=== PATIENT | male | born 1970 | race Caucasian/White ===

== ENCOUNTER 2020-01-14 04:18 | Emergency (ER) | payer BC, SELFPAY ==
[2020-01-14 04:28] VITALS: BP 176/94; PULSE 93; RESP 17; TEMP 36.7; O2SAT 96; BMI 31.6
--- NOTE | 2020-01-14 04:38 | XR_ITS ---
PROCEDURE: XR TIBIA FIBULA RT 2V CLINICAL INDICATION: New lump behind calf previous fracture involving tibia COMPARISON: No exams were available for comparison FINDINGS: There is mild deformity of the proximal tibia at the diametaphyseal zone likely due to previous fracture. In addition there is mild cortical thickening mid tibial shaft from an old healed fracture. The fibula is intact. The soft tissues are normal. IMPRESSION: Posttraumatic changes of the tibia, no definite acute soft tissue or bony pathology seen Dictated by: Dr. Jer Julian MD 01/14/2020 09:[address] Jer Julian MD in [place] 01/14/2020 09:27
--- NOTE | 2020-01-14 04:56 | HMH.EDGENADL ---
ED Disposition Clinical Impression: Injury, lower leg Qualifiers: Encounter type: initial encounter Laterality: right Qualified Code(s): S89.91XA - Unspecified injury of right lower leg, initial encounter Disposition: Home, Self-Care Condition on Discharge: Good Instructions: DI for Acute Pain -- Adult Additional Instructions: will arrange doppler today - and will need therapy and nsaif Referrals: Cruz Prieto MD [Primary Care Provider] - - Critical Care Critical Care Time: No Attestation: On 01/14/20, the high probability of a clinically significant, sudden or life threatening deterioration of the following system(s) required my full and direct attention, intervention and personal management. The time I documented below is in addition to time spent performing reported procedures but includes the following listed in this critical care notation. Medical Decision Making - Medical Records Medical records reviewed: Yes: I reviewed the patient's medical records. - Ulisses Inquiry Pt receiving controlled substance: No Vital Signs: 01/14/20 04:28 Temperature 98.1 F Temperature Source Oral Pulse Rate [Right Brachial] 93 H Respiratory Rate 17 Blood Pressure [Right Arm] 176/94 H Blood Pressure Mean [Right Arm] 121 Blood Pressure Source [Right Arm] Automatic Cuff Blood Pressure Position [Right Arm] Sitting 02 Sat by Pulse Oximetry 96 Oxygen Delivery Method Room Air - Lab Data Lab results reviewed: Yes: I reviewed the patient's lab results. Lab Results 01/14/20 04:38: WBC 11.5 H, RBC 4.78, Hgb 15.9, Hct 45.8, MCV 95.8 H, MCH 33.3 H, MCHC 34.7, RDW 13.0, Plt Count 227, MPV 7.6, Neut % (Auto) 75.1, Lymph % (Auto) 17.3, [place] % (Auto) 5.3, Eos % (Auto) 1.9, Baso % (Auto) 0.5, Neut # (Auto) 8.6 H, Lymph # (Auto) 2.0, [place] # (Auto) 0.6, Eos # (Auto) 0.2, Baso # (Auto) 0.1 01/14/20 04:38: Sodium 133 L, Potassium 4.1, Chloride 100, Carbon Dioxide 26, Anion Gap 11.1, BUN 12, Creatinine 0.80, Estimated Creat Clear 168, Estimated GFR 102, Est GFR ( Amer) 123, Glucose 119 H, Calcium 9.3, Total Bilirubin 0.4, AST 55, ALT 55, Alkaline Phosphatase 94, Total Protein 7.6, Albumin 4.5, Globulin 3.1, Albumin/Globulin Ratio 1.5 Result diagrams: 01/14/20 04:38 01/14/20 04:38 Orders (Tests/Meds): ORDERS Category Date Time Status XR tibia fibula RT 2V Stat Exams 01/14/20 04:38 Taken - Radiology Data #1 Image(s): Tib/Fib Image Reviewed: Yes I reviewed the patient's radiology image Preliminary Findings: No Fracture Seen General Adult HPI - General Chief complaint: PAIN Stated complaint: Knot on calf of right leg Time Seen by Provider: 01/14/20 05:10 Mode of Arrival: Family Vehicle Source of Information: Patient, Medical Record Limitations: No Limitations Description of Symptoms (Recalled from ER Triage Doc. by RN): felt a pop in the posterior lower leg on wednesday when he was taking out his trash. pt states he has tried heat, ibuprofen, tylenol and a TENS unit on it with some relief. however overnight last night incr pain and a knot formed under his calf muscle. - History of Present Illness HPI narrative: sudden pop rt calf as he was stepping up and has swelling and pain deyanira with flexion of foot - no sob or prev dvt - hx of prev fx rt leg Onset (ago): day(s) Location: lower extremity Severity: moderate Associated symptoms: denies other symptoms Treatments prior to arrival: none - Related Data Home Medications Medication Instructions Recorded Confirmed Aspirin [Aspirin 81mg EC Tab] 81 mg PO DAILY 01/14/20 01/14/20 Atorvastatin Calcium [Lipitor 20mg 20 mg PO HS 01/14/20 01/14/20 Tablet] Fenofibrate 160 mg PO DAILY 01/14/20 01/14/20 Losartan Potassium [Cozaar 50mg 50 mg PO DAILY 01/14/20 01/14/20 Tablets] Allergies Allergy/AdvReac Type Severity Reaction Status Date / Time No Known Allergies Allergy Verified 01/14/20 04:33 [facility] History - Hepatitis A Screen D
[2020-01-14 04:57] LABS: Basophils # 0.1 K/mm3 (0-0.2); Basophils % 0.5 % (0.1-2.0); Eosinophils # 0.2 K/mm3 (0.0-0.4); Eosinophils % 1.9 % (0.1-12.0); Hematocrit 45.8 % (42.0-52.0); Hemoglobin 15.9 g/dL (14.1-18.0); Lymphocytes % 17.3 % (10-50); Mean Corpuscular HGB Conc 34.7 g/dL (31.8-35.4); Mean Corpuscular Hemoglobin 33.3 pg (27.0-31.2); Mean Corpuscular Volume 95.8 fl (80-94); Mean Platelet Volume 7.6 fl (7.4-10.4); Monocytes # 0.6 K/mm3 (0.1-1.0); Monocytes % 5.3 % (1.7-9.3); Neutrophils # 8.6 K/mm3 (1.8-7.8); Neutrophils % 75.1 % (37.0-80.0); Platelet Count 227 K/mm3 (142-424); Red Blood Count 4.78 M/mm3 (4.60-6.20); White Blood Count 11.5 K/mm3 (4.8-10.8)
[2020-01-14 04:59] LABS: Alanine Aminotransferase 55 U/L (12-78); Albumin Level 4.5 g/dl (3.5-5.0); Albumin/Globulin Ratio 1.5 (1.1-1.8); Alkaline Phosphatase 94 U/L (38-126); Anion Gap 11.1 mEq/L (5-15); Aspartate Amino Transferase 55 U/L (17-59); Bilirubin,Total 0.4 mg/dl (0.2-1.3); Blood Urea Nitrogen 12 mg/dl (9-20); Calcium 9.3 mg/dl (8.4-10.2); Carbon Dioxide 26 mmol/L (22.0-30.0); Chloride 100 mmol/L (98-107); Creatinine Clearance Estimated 168 mL/min (50-200); Estimated Glomerular Filt Rate 102 ml/min (>60); GFR (African American) 123 ML/MIN (>60); Globulin 3.1 g/dL (1.3-3.2); Glucose 119 mg/dl (74-100); Potassium 4.1 mmoL/L (3.5-5.1); Sodium 133 mmol/L (136-145); Total Protein,Serum 7.6 g/dl (6.3-8.2)
[2020-01-14 06:07] VITALS: BP 159/97; PULSE 89; RESP 16; TEMP 36.7; O2SAT 96
== END 2020-01-14 06:18 | disposition home or self-care (01) ==
PROVIDERS: Emergency Provider Emergency Medicine; PCP Family Medicine
DX: S89.91XA Unspecified injury of right lower leg, initial encounter (principal); Z79.899 Other long term (current) drug therapy; E78.5 Hyperlipidemia, unspecified; I10 Essential (primary) hypertension
CPT/HCPCS: 73590; 80053; 85025; 99282

== ENCOUNTER → 2020-01-14 12:47 | Outpatient (CLI) | payer BC, SELFPAY ==
--- NOTE | 2020-01-14 | CA_ITS ---
APPROVED REPORT Right Lower Extremity Venous Study for DVT. Acid Splicer: CT Indications Lower Extremity Pain: Pt felt a pop and had pain while moving furniture Wednesday night. Vein Imaging CFV (R): compressive, spontaneous, phasic, augmentation SFJ (R): compressive, spontaneous, phasic, augmentation FEM (R): compressive, spontaneous, phasic, augmentation POP (R): compressive, spontaneous, phasic, augmentation DFV (R): compressive, spontaneous, phasic, augmentation PTV (R): compressive, spontaneous, phasic, augmentation GSV (R): compressive, spontaneous, phasic, augmentation Peroneals (R):compressive, spontaneous, phasic, augmentation GAS (R): compressive, spontaneous, phasic, augmentation Findings RLE negative for DVT/SVT. Vessels compressible, no reflux noted. Color flow duplex demonstrates no evidence of DVT of the following right lower extremity Veins. Pt had interstitial edema in the calf, the same area he felt pop. Conclusion RLE negative for DVT/SVT. Vessels compressible, no reflux noted. Color flow duplex demonstrates no evidence of DVT of the following right lower extremity Veins. Pt had interstitial edema in the calf, the same area he felt pop. Electronically signed by : Jona Renteria, 01/18/2020 09:21:03
== END ==
PROVIDERS: PCP Family Medicine; Visit Provider Emergency Medicine
DX: M79.89 Other specified soft tissue disorders (principal); M79.661 Pain in right lower leg
CPT/HCPCS: 93971

== ENCOUNTER → 2020-08-08 07:33 | Outpatient (CLI) | payer BC, SELFPAY ==
--- NOTE | 2020-08-08 | CA_ITS ---
APPROVED REPORT Exam: Pharmacologic Technologist: Virginia Peña, Ht: 6 ft 0 in Wt: 239 lbs BSA: 2.30 m2 HR: 68 bpm BP: 158/78 mmHg Rhythm: NSR Indications: Chest Pain, htn Stress Test Details Test: LEXISCAN HR Resting HR: 71 bpm Max Heart Rate (APMHR): 168 bpm Max HR Achieved: 101 bpm Target HR (85% APMHR): 142 bpm % of APMHR: 60 Recovery HR: 86 bpm BP Resting BP: 158/78 mmHg Max BP: 158/78 mmHg Recovery BP: 124.0/86.0 mmHg ECG Clinical Exercise duration: 04:01 min Highest Stage Achieved: Stress ECG Conclusion chest tightness, SOA, and malaise. Occasional PVC. No significant changes Unremarkable Lexiscan stress. Myoview images reported separately.. Electronically signed by : Joseph Fallon, 08/08/2020 14:53:47
--- NOTE | 2020-08-08 07:33 | NM_ITS ---
APPROVED REPORT Exam: Nuclear Stress Test Indication: chest pain Patient Location: Outpatient Stress Tech: Virginia Peña MD Tech:EVELINA Burciaga RT(R)(N) Ht: 6 ft 1 in Wt: 245 lbs HR: 68 bpm BP: 158/78 mmHg BSA: 2.35 m2 BMI: 32.3 Procedure: Patient received a 0.4 mg of intravenous Lexiscan, resting heart rate 68 bpm, resting blood pressure 158/78 mmHg, with Lexiscan maximum heart rate achived was 100 bpm which is Less than 85 % of the maximum predicted heart rate and blood pressure was 147/71 mmHg. With Lexiscan, patient denied any complaint of chest pain. Electrocardiogram Resting electrocardiogram showed sinus rhythm, with Lexiscan there is less than 1.[address] segment depression noted from the baseline EKG. The EKG portion of the Lexiscan is nondiagnostic. Cardiac Stress and Resting SPECT Images: Cardiac Stress and Resting SPECT images were obtained using technetium 99m Myoview 32.1 mCi stress and 10.28 mCi at rest. Gated SPECT for analysis of segmental wall motion and calculation of the ejection fraction also done. Prone images were also obtained. Cardiac stress and resting SPECT images show uniform myocardial activity without segmental perfusion abnormality, computer derived ejection fraction is 51% with no regional wall motion abnormality, right ventricle is mildly enlarged with normal contractility. Conclusion: 1. The EKG portion of the Lexiscan is nondiagnostic. 2. No scintigraphic evidence of reversible ischemia seen, computer derived ejection fraction is 51% with no regional wall motion abnormality, right ventricle is mildly enlarged with normal contractility. 3. Normal Lexiscan Myoview study. Electronically signed by : Joseph Fallon, 08/08/2020 14:57:48
--- NOTE | 2020-08-08 08:18 | CA_ITS ---
APPROVED REPORT EXAM: Comprehensive 2D, Doppler, and color-flow Echocardiogram Supervisor Varnish: Fernanda Dorman RVT Ht: 6 ft 1 in Wt: 239lbs BSA: 2.32 BP: 160/92 mmHg Indications: CP,SOA,ABN EKG,HTN,HLD,SMOKER,ALCOHOL DEPENDENCE 2D Dimensions LVOT 2.21 cm (M/F) 1.5-2.5 M-Mode Dimensions RVDd 3.14 cm (0.9-2.6) LA Diam 4.14 cm (1.9-4.0) LVDd 5.48 cm (3.5-5.7) Ao Diam 3.02 cm (2.0-3.7) LVDs 3.87 cm (3.5-5.7) IVSd 0.68 cm (0.6-1.1) PWd 0.93 cm (0.6-1.1) EF (Teich) 55.70% FS 29.40% EDV (Teich) 146.20 mL ESV (Teich) 64.70 mL LV Diastology E Decel Time 190.00 (160-240 msec) E/A Ratio 1.4 MED E' 7.60 (< 7 cm/sec) E'/MED E' Ratio 11.53 (>14) LAT E' 9.70 (<10 cm/sec) E/LAT E' Ratio 9.03 (>14) Mitral Valve MV E Max Gigi. 88.00 (40-130 cm/s) MV A Velocity 64.00 (40-130 cm/s) E/A Ratio 1.36 MV Decel. Time 190.00 (160-240 ms) MV PHT 56.00 ms Pulmonary Valve PV Peak Velocity 92.00 (50-150 cm/s) Left Ventricle Left atrium is mildly enlarged, left ventricle is normal size, mild concentric left ventricular hypertrophy, visually estimated ejection fraction 55% with no regional wall motion abnormality, diastolic parameters are inconclusive. Right Ventricle Right atrium and right ventricle are mildly enlarged with normal contractility. Aortic Valve Aortic valve is minimally thickened and fibrosed, there is no aortic stenosis or aortic insufficiency. Mitral Valve Mitral valve is grossly normal, there is trace mitral regurgitation. Tricuspid Valve Tricuspid valve grossly normal, there is trace tricuspid regurgitation, tricuspid regurgitation jet velocity is inadequate for calculation of the right ventricular systolic pressure. Pulmonic Valve Pulmonic valve is poorly visualized. Great Vessels Aortic root is normal size. Pericardium No significant pericardial effusion noted. Conclusion 1. Mild biatrial enlargement, normal left ventricular size, mild concentric left ventricular hypertrophy, visually estimated ejection fraction 55% with no regional wall motion abnormality, diastolic parameters are inconclusive. 2. Mildly enlarged right ventricle with normal contractility. 3. Trace mitral and tricuspid regurgitation. 4. No significant pericardial effusion noted. Electronically signed by : Joseph Fallon, 08/08/2020 16:07:45
--- NOTE | 2020-08-08 08:18 | US_ITS ---
APPROVED REPORT Exam Type: Lower Extremity Segmental Pressures Chair Mender: Traci RCS, RVS Indications Claudication: Numbness/Tingling Current Smoker History of Smoking HTN Risk Factors Hypertension Current Smoker History of Smoking Pressures/Indices Right Indices Left Indices Brachial 138.00 mmHg Brachial 136.00 mmHg Low Thigh 134.00 mmHg 0.97 Low Thigh 150.00 mmHg 1.09 Calf 148.00 mmHg 1.07 Calf 151.00 mmHg 1.09 Ankle(PT) 161.00 mmHg 1.17 Ankle(PT) 166.00 mmHg 1.20 Ankle(DP) 141.00 mmHg 1.02 Ankle(DP) 151.00 mmHg 1.09 Digit 102.00 mmHg 0.74 Digit 113.00 mmHg 0.82 Findings RT DIVYA-1.2 LT DIVYA-1.2 RT TP-0.74 LT TP-0.82 Normal waveforms observed Normal pressures obtained Conclusion RT DIVYA-1.2 LT DIVYA-1.2 RT TP-0.74 LT TP-0.82 Normal waveforms observed Normal pressures obtained Normal appearing resting noninvasive lower extremity arterial study. Electronically signed by : Chris Ramirez MD 08/08/2020 17:42:52
== END ==
LOC: RAD 07:33
PROVIDERS: PCP Family Medicine; Visit Provider Nurse Practitioner Family
DX: R07.9 Chest pain, unspecified (principal); R06.00 Dyspnea, unspecified; R94.31 Abnormal electrocardiogram [ECG] [EKG]; E78.5 Hyperlipidemia, unspecified; I10 Essential (primary) hypertension; R05 Cough; R20.8 Other disturbances of skin sensation; F10.20 Alcohol dependence, uncomplicated; F17.200 Nicotine dependence, unspecified, uncomplicated; R06.83 Snoring; R53.83 Other fatigue; Z82.49 Family history of ischemic heart disease and other diseases of the circulatory system
CPT/HCPCS: 78452; 93017; 93306; 93923; A9502; J2785

== ENCOUNTER → 2021-12-13 08:13 | Outpatient (CLI) | payer BC, SELFPAY ==
[2021-12-13 08:54] LABS: Alanine Aminotransferase 70 U/L (12-78); Albumin/Globulin Ratio 1.6 (1.1-1.8); Alkaline Phosphatase 82 U/L (38-126); Anion Gap 10.1 mEq/L (5-15); Aspartate Amino Transferase 51 U/L (17-59); Bilirubin,Total 0.8 mg/dl (0.2-1.3); Blood Urea Nitrogen 13 mg/dl (9-20); Calcium 9.1 mg/dl (8.4-10.2); Carbon Dioxide 28 mmol/L (22.0-30.0); Chloride 104 mmol/L (98-107); Estimated Glomerular Filt Rate 118 ml/min (>60); GFR (African American) 143 ML/MIN (>60); Globulin 2.5 g/dL (1.3-3.2); Glucose 102 mg/dl (74-100); Lipase 60 U/L (23-300); Potassium 4.1 mmoL/L (3.5-5.1); Sodium 138 mmol/L (136-145); Total Protein,Serum 6.5 g/dl (6.3-8.2)
[2021-12-13 09:25] LABS: Prostate Specific Ag Screen 0.3 ng/ml (0.0-4.0)
[2021-12-15 15:07] LABS: Chol/HDL Ratio 6.1 (1-3.5); Cholesterol 165 mg/dl (140-200); HDL Cholesterol 27 mg/dl (40-60)
[2021-12-15 15:17] LABS: Triglycerides 415 mg/dl (30-150)
[2021-12-15 15:18] LABS: Direct LDL Cholesterol 72.74 mg/dL (100-129)
== END ==
PROVIDERS: PCP Family Medicine; Visit Provider Family Medicine
DX: E78.5 Hyperlipidemia, unspecified (principal); I10 Essential (primary) hypertension; Z12.5 Encounter for screening for malignant neoplasm of prostate
CPT/HCPCS: 36415; 80053; 80061; 83690; G0103

== ENCOUNTER → 2022-06-23 09:17 | Outpatient (CLI) | payer BC, SELFPAY ==
--- NOTE | 2022-06-23 09:35 | XR_ITS ---
FINAL REPORT CLINICAL HISTORY: cough FINDINGS: CHEST TWO-VIEW The lungs are clear. There is no evidence of effusion or other pleural disease. The mediastinum as a normal appearance. The cardiac silhouette is unremarkable. IMPRESSION: No acute findings. Reviewed, Interpreted and Dictated by Alexis Bustamante MD Transcribed by Harry Waggoner Authenticated and [facility]
[2022-06-23 10:04] LABS: Chloride 103 mmol/L (98-107); Potassium 4.2 mmoL/L (3.5-5.1); Sodium 140 mmol/L (136-145)
[2022-06-23 10:07] LABS: Alanine Aminotransferase 67 U/L (12-78); Albumin Level 4.3 g/dl (3.5-5.0); Albumin/Globulin Ratio 1.8 (1.1-1.8); Alkaline Phosphatase 78 U/L (38-126); Anion Gap 11.2 mEq/L (5-15); Aspartate Amino Transferase 66 U/L (17-59); Bilirubin,Total 0.4 mg/dl (0.2-1.3); Blood Urea Nitrogen 11 mg/dl (9-20); Carbon Dioxide 30 mmol/L (22.0-30.0); Cholesterol 180 mg/dl (140-200); Estimated Glomerular Filt Rate 88 ml/min (>60); GFR (African American) 106 ML/MIN (>60); Globulin 2.4 g/dL (1.3-3.2); Total Protein,Serum 6.7 g/dl (6.3-8.2); Triglycerides 300 mg/dl (30-150); VLDL Cholesterol 60 mg/dL (0-40)
[2022-06-23 10:08] LABS: Calcium 9.6 mg/dl (8.4-10.2); Chol/HDL Ratio 4.6 (1-3.5); Glucose 91 mg/dl (74-100); HDL Cholesterol 39 mg/dl (40-60)
[2022-06-23 10:19] LABS: Direct LDL Cholesterol 100.03 mg/dL (100-129)
[2022-06-23 10:38] LABS: Thyroid Stimulating Hormone 1.16 uIU/mL (0.465-4.68)
== END ==
PROVIDERS: PCP Family Medicine; Visit Provider Family Medicine
DX: R05.9 Cough, unspecified (principal); I10 Essential (primary) hypertension; E78.5 Hyperlipidemia, unspecified
CPT/HCPCS: 36415; 71046; 80053; 80061; 84443

== ENCOUNTER 2023-11-13 06:14 | Outpatient (CLI) | payer BC, SELFPAY ==
[2023-11-13 07:22] LABS: Cholesterol 151 mg/dl (140-200); HDL Cholesterol 50 mg/dl (40-60)
[2023-11-13 07:28] LABS: Triglycerides 420 mg/dl (30-150)
[2023-11-13 07:33] LABS: Direct LDL Cholesterol 61.96 mg/dL (100-129)
== END 2023-11-13 23:59 ==
LOC: LAB 06:16
PROVIDERS: PCP Family Medicine; Visit Provider Nurse Practitioner Family
DX: I48.0 Paroxysmal atrial fibrillation (principal); E78.5 Hyperlipidemia, unspecified; I25.10 Atherosclerotic heart disease of native coronary artery without angina pectoris; I10 Essential (primary) hypertension; R94.31 Abnormal electrocardiogram [ECG] [EKG]; F17.200 Nicotine dependence, unspecified, uncomplicated; Z95.5 Presence of coronary angioplasty implant and graft; Z79.899 Other long term (current) drug therapy
CPT/HCPCS: 36415; 80061

== ENCOUNTER 2024-05-13 08:10 | Outpatient (CLI) | payer BC, SELFPAY ==
--- NOTE | 2024-05-13 08:32 | XR_ITS ---
PROCEDURE INFORMATION: Exam: XR Chest Exam date and time: 05/13/2024 8:34 AM Age: 54 years old Clinical indication: Cough and other: N; Additional info: Amiodarone therapy TECHNIQUE: Imaging protocol: Radiologic exam of the chest. Views: 2 views. COMPARISON: CR XR CHEST 2V 06/23/2022 10:02 AM FINDINGS: Lungs: Unremarkable. No consolidation. Pleural spaces: Unremarkable. No pleural effusion. No pneumothorax. Heart/Mediastinum: Unremarkable. No cardiomegaly. Bones/joints: Unremarkable. IMPRESSION: No acute findings.
[2024-05-13 08:51] LABS: Basophils # 0.1 K/mm3 (0-0.2); Basophils % 0.9 % (0.1-2.0); Eosinophils # 0.1 K/mm3 (0.0-0.4); Eosinophils % 1.1 % (0.1-12.0); Hematocrit 46.2 % (42.0-52.0); Hemoglobin 15.9 g/dL (14.1-18.0); Lymphocytes % 18.8 % (10-50); Mean Corpuscular HGB Conc 34.3 g/dL (31.8-35.4); Mean Corpuscular Hemoglobin 33.6 pg (27.0-31.2); Mean Platelet Volume 7.8 fl (7.4-10.4); Monocytes # 0.8 K/mm3 (0.1-1.0); Monocytes % 7.1 % (1.7-9.3); Neutrophils # 7.7 K/mm3 (1.8-7.8); Neutrophils % 72.1 % (37.0-80.0); Platelet Count 189 K/mm3 (142-424); Red Blood Count 4.72 M/mm3 (4.60-6.20); Red Cell Distribution Width 12.9 % (11.5-17.5); White Blood Count 10.7 K/mm3 (4.8-10.8)
[2024-05-13 08:57] LABS: Albumin Level 4.2 g/dl (3.5-5.0); Chloride 103 mmol/L (98-107); Potassium 4.5 mmoL/L (3.5-5.1); Sodium 138 mmol/L (136-145)
[2024-05-13 08:59] LABS: Bilirubin,Unconjugated 0.4 mg/dL (0.0-1.1); Blood Urea Nitrogen 11 mg/dl (9-20); Estimated Glomerular Filt Rate 87 ml/min (>60); GFR (African American) 106 ML/MIN (>60)
[2024-05-13 09:00] LABS: Alanine Aminotransferase 59 U/L (12-78); Alkaline Phosphatase 78 U/L (38-126); Anion Gap 9.5 mEq/L (5-15); Aspartate Amino Transferase 56 U/L (17-59); Bilirubin,Direct 0.2 mg/dl (0.0-0.4); Bilirubin,Indirect 0.4 mg/dL (0.0-0.9); Bilirubin,Total 0.6 mg/dl (0.2-1.3); Calcium 9.3 mg/dl (8.4-10.2); Carbon Dioxide 30 mmol/L (22.0-30.0); Chol/HDL Ratio 3.7 (1-3.5); Cholesterol 140 mg/dl (140-200); Glucose 102 mg/dl (74-100); HDL Cholesterol 38 mg/dl (40-60); Magnesium 1.9 mg/dl (1.6-2.3); Total Protein,Serum 6.6 g/dl (6.3-8.2); Triglycerides 292 mg/dl (30-150); VLDL Cholesterol 58 mg/dL (0-40)
[2024-05-13 09:11] LABS: Direct LDL Cholesterol 57.35 mg/dL (100-129)
[2024-05-13 09:17] LABS: Free T4 (Free Thyroxine) 1.37 ng/dl (0.78-2.19)
[2024-05-13 09:32] LABS: Thyroid Stimulating Hormone 1.56 uIU/mL (0.465-4.68)
== END 2024-05-13 23:59 | disposition home or self-care (01) ==
LOC: RAD 08:12
PROVIDERS: Physician Assistant; PCP Family Medicine; Visit Provider Family Medicine
DX: I48.0 Paroxysmal atrial fibrillation (principal); Z95.5 Presence of coronary angioplasty implant and graft; I10 Essential (primary) hypertension; I25.10 Atherosclerotic heart disease of native coronary artery without angina pectoris; Z79.899 Other long term (current) drug therapy; E78.2 Mixed hyperlipidemia; R94.31 Abnormal electrocardiogram [ECG] [EKG]; M79.604 Pain in right leg; M79.605 Pain in left leg; E78.5 Hyperlipidemia, unspecified; F17.210 Nicotine dependence, cigarettes, uncomplicated; F10.20 Alcohol dependence, uncomplicated
CPT/HCPCS: 36415; 71046; 80048; 80061; 80076; 83735; 84439; 84443; 85025

== ENCOUNTER 2024-05-16 08:15 | Outpatient (CLI) | payer BC, SELFPAY | END 2024-05-16 23:59 | disposition home or self-care (01) | LOC: RT 08:18 | PROVIDERS: PCP Family Medicine; Visit Provider Physician Assistant | DX: M79.604 Pain in right leg (principal); M79.605 Pain in left leg | CPT/HCPCS: 93923 ==

== ENCOUNTER 2024-07-18 09:48 | Outpatient (CLI) | payer BC, SELFPAY ==
--- NOTE | 2024-07-18 09:52 | XR_ITS ---
FINAL REPORT CLINICAL HISTORY: Pneumothorax, unspecified states f/u to pneumothorax COMPARISON: 06/23/2022 FINDINGS: No acute pulmonary density is evident. There is no evidence of effusion or other pleural disease. The mediastinum has a normal appearance. The cardiac silhouette is unremarkable. IMPRESSION: Unremarkable chest exam. Reviewed, Interpreted and Dictated by Alexis Bustamante MD Transcribed by Ira Pang Authenticated and [facility]
== END 2024-07-18 23:59 | disposition home or self-care (01) ==
LOC: RAD 09:50
PROVIDERS: PCP Family Medicine; Visit Provider Family Medicine
DX: J93.9 Pneumothorax, unspecified (principal)
CPT/HCPCS: 71046

== ENCOUNTER 2025-05-07 09:22 | Outpatient (CLI) | payer OTHER, SELFPAY ==
--- NOTE | 2025-05-07 09:25 | XR_ITS ---
FINAL REPORT CLINICAL HISTORY: miodarone therapy FINDINGS: 2 views of the chest were obtained . The heart is normal in size. The mediastinum is within normal limits. The lungs are clear. There is no pneumothorax. Osseous structures are unremarkable. IMPRESSION: No acute cardiopulmonary process. Reviewed, Interpreted and Dictated by Bety Reaves MD Transcribed by Ana M Benton Authenticated and [facility]
== END 2025-05-07 23:59 | disposition home or self-care (01) ==
LOC: RAD 09:23
PROVIDERS: PCP Family Medicine; Visit Provider Physician Assistant
DX: I25.10 Atherosclerotic heart disease of native coronary artery without angina pectoris (principal); Z79.899 Other long term (current) drug therapy; I48.0 Paroxysmal atrial fibrillation; I10 Essential (primary) hypertension; E78.2 Mixed hyperlipidemia
CPT/HCPCS: 71046